=== PATIENT | female | born 2000 | race Caucasian/White ===

== ENCOUNTER 2022-01-22 18:34 | Emergency (ER) | payer OTHER ==
[2022-01-22 18:41] VITALS: BMI 17.7
[2022-01-22] MEDS ORDERED: ACETAMINOPHEN 500 MG TABLET (FP) PO ONE (19:16)
[2022-01-22] MEDS ORDERED: ACETAMINOPHEN 500 MG TABLET (FP) ONE (19:21)
[2022-01-22 19:54] VITALS: BP 113/77; PULSE 112; RESP 18; TEMP 98.6
[2022-01-22 20:56] LABS: THROAT:GRP A STREP NOT DETECTED (NOTDETECTED)
== END 2022-01-22 20:14 | disposition home or self-care (01) ==
LOC: JER 18:34
DX: R51.9 Headache, unspecified (principal); R50.9 Fever, unspecified
CPT/HCPCS: 0241U-QW; 87651; 99283-25